=== PATIENT | female | born 1990 | race Caucasian/White ===

== ENCOUNTER 2017-09-24 17:42 | Inpatient (IN) | payer BC ==
[~2017-09-24] VITALS: Ht 165.1 cm; Wt 71.1 kg
[~2017-09-24 17:42] MED LIST: IBU600 MG PO; MILLIPRED5 MG PO; MOTRIN 600600 MG/TAB PO; PERCOCET 325 MG1 TA2 PO; PRENATAL1 TA7 PO
[2017-10-05] VITALS (20 sets, daily range): BP systolic 103–126; BP diastolic 59–86; PULSE 67–93; TEMP 97.6–98.8
[2017-10-05 07:54] LABS: BASO % 0.5 % (0.0-2.0); EOS # 0.1 (0.0-0.7); EOS % 0.8 % (0-4.0); GRAN # 4.3 (1.4-6.5); GRAN % 65.8 % (42.2-75.2); LYMPH # 1.4 (1.2-3.4); LYMPH % 20.8 % (20.0-51.0); MEAN CELL VOLUME 84 fl (80.0-100.0); MEAN CORPUSCULAR HGB CONC 32 g/dl (33.0-37.0); MEAN PLATELET VOLUME 11.7 fl (7.4-10.4); MONO # 0.7 (0.1-0.6); PLATELET COUNT 156 K/mm3 (130-400); RED BLOOD COUNT 4.29 M/mm3 (4.10-5.30); REDCELL DISTRIBUTION WIDTH-CV 13.1 % (11.5-14.5)
[2017-10-05 07:55] LABS: HEMATOCRIT 36.2 % (37.0-47.0); HEMOGLOBIN 11.6 g/dl (12.5-16.0); MEAN CORPUSCULAR HEMOGLOBIN 27 pg (27.0-31.0)
[2017-10-06 06:45] VITALS: BP 121/77; PULSE 90; TEMP 97.7
== END 2017-10-06 12:50 | disposition home or self-care (01) | DRG 775 ==
LOC: LDR 10-05 06:55 → OB 10-05 06:55 → LDR 10-05 17:41 → OB 10-06 12:50
PROVIDERS: Student in an Organized Health Care Education/Training Program
PROC: 10E0XZZ Delivery of Products of Conception, External Approach (ICD-10-PCS; principal; 2017-10-05)
PROC: 0KQM0ZZ Repair Perineum Muscle, Open Approach (ICD-10-PCS; 2017-10-05)
PROC: 3E033VJ Introduction of Other Hormone into Peripheral Vein, Percutaneous Approach (ICD-10-PCS; 2017-10-05)
DX: O36.0130 Maternal care for anti-D [Rh] antibodies, third trimester, not applicable or unspecified (principal); O70.1 Second degree perineal laceration during delivery; Z3A.39 39 weeks gestation of pregnancy; Z37.0 Single live birth
CPT/HCPCS: J2590; J2791; J2795; J7120

== ENCOUNTER 2021-01-17 17:52 | Outpatient (CLI) | payer BC ==
[~2021-01-17] VITALS: Ht 165.1 cm; Wt 73.6 kg
--- NOTE | 2021-01-17 17:55 | NUR ---
Admits to L&D with c/o leaking of fluid when she stood up at work today around 1530 or 1600. Reports she was unsure if it was her water breaking or possibly urine. SVE 4/75/0, palpable intact bag of membranes, amnitrace negative, no fluid return when head pushed upward. Exam dry, scant amount of white discharge noted.
[2021-01-17 18:46] VITALS: BP 112/77; TEMP 98
--- NOTE | 2021-01-17 19:13 | NUR ---
DR. COON NOTIFIED OF PATIENTS NEGATIVE ROM RESULT, NO CONTRACTIONS AND REVIEW OF STRIP. PATIENT WILL BE SENT HOME PER DR. COON'S ORDERS.
== END 2021-01-17 19:05 | disposition home or self-care (01) ==
LOC: LDRO 17:52 → LDR 18:00 → LDRO 19:05
DX: O99.113 Other diseases of the blood and blood-forming organs and certain disorders involving the immune mechanism complicating pregnancy, third trimester (principal); O42.92 Full-term premature rupture of membranes, unspecified as to length of time between rupture and onset of labor; Z3A.36 36 weeks gestation of pregnancy
CPT/HCPCS: OP

== ENCOUNTER 2021-01-30 06:23 | Inpatient (IN) | payer BC ==
[~2021-01-30] VITALS: Ht 167.6 cm; Wt 73.6 kg
[2021-01-30] VITALS (20 sets, daily range): BP systolic 106–137; BP diastolic 63–88; PULSE 65–89; TEMP 97.5–98.3
[2021-01-30 07:30] LABS: BASO % 0.4 % (0.0-2.0); EOS # 0.1 (0.0-0.7); EOS % 0.8 % (0-4.0); GRAN # 5.4 (1.4-6.5); GRAN % 72.6 % (42.2-75.2); HEMATOCRIT 37.5 % (37.0-47.0); HEMOGLOBIN 12.2 g/dl (12.5-16.0); LYMPH # 1.3 (1.2-3.4); LYMPH % 17.8 % (20.0-51.0); MEAN CELL VOLUME 83 fl (80.0-100.0); MEAN CORPUSCULAR HEMOGLOBIN 27 pg (27.0-31.0); MEAN CORPUSCULAR HGB CONC 33 g/dl (33.0-37.0); MEAN PLATELET VOLUME 12.9 fl (7.4-10.4); MONO # 0.6 (0.1-0.6); MONO % 7.6 % (1.7-9.3); PLATELET COUNT 134 K/mm3 (130-400); REDCELL DISTRIBUTION WIDTH-CV 13.7 % (11.5-14.5)
[2021-01-30] MEDS ORDERED: PREDNISONE 5MG5 MG PO (08:33)
--- NOTE | 2021-01-30 08:56 | NUR ---
@ 0856 Wally durham called and notified of patient request for epidural. states he is on his way in. @ 0910 EFM off and patient assisted to ambulate to bathroom for void prior to epidural placement. While on toilet, patient reports now feeling rectal pressure. Assisted back to bed by this RN and . @ 0917 EFM back on. SVE 8.5/100%/+[address] Llamas called and notified of SVE, patient unblocked and she is needed for delivery. @ 0918 pitocin discontinued. @ 0923 Dr Llamas in room for delivery. Performs SVE @ 0925 and states cervix is anterior lip. @ 0925 Wally durham arrives to room for epidural placement. notified that patient is ready for delivery and decision made to withold epidural placement. Patient prepared for delivery. @ [address] Llamas states cervix is now complete. Patient begins pushing Delivery of head at @ 0933. Jasson maneuver performed as directed by Dr. Llamas with delivery of body @ 0934. 1% licocaine used as local for repair of laceration.
--- NOTE | 2021-01-30 11:40 | NUR ---
Patient ambulates to bathroom accompanied by this RN and for void. Able to void spontaneously. Instructed on pericare and use of witch juanpablo pads. Patient then ambulates to to post room 207 without incident. Oriented to room and plan of care.
[2021-01-31 04:25] VITALS: BP 110/78; PULSE 81; TEMP 97.8
[2021-01-31 07:50] VITALS: BP 122/69; PULSE 79; TEMP 97.8
--- NOTE | 2021-01-31 09:49 | NUR ---
Initial visit; Parents thanked [employer] for offering congratulations and God's blessings for the of their son. [employer] thanked family for choosing our hospital.
== END 2021-01-31 12:40 | disposition home or self-care (01) | DRG 806 ==
LOC: LDR 06:23 → OB 11:40
PROVIDERS: ADMIT Student in an Organized Health Care Education/Training Program
PROC: 10E0XZZ Delivery of Products of Conception, External Approach (ICD-10-PCS; principal; 2021-01-30)
PROC: 0KQM0ZZ Repair Perineum Muscle, Open Approach (ICD-10-PCS; 2021-01-30)
PROC: 10907ZC Drainage of Amniotic Fluid, Therapeutic from Products of Conception, Via Natural or Artificial Opening (ICD-10-PCS; 2021-01-30)
PROC: 3E033VJ Introduction of Other Hormone into Peripheral Vein, Percutaneous Approach (ICD-10-PCS; 2021-01-30)
DX: O66.0 Obstructed labor due to shoulder dystocia (principal); O99.12 Other diseases of the blood and blood-forming organs and certain disorders involving the immune mechanism complicating childbirth; Z37.0 Single live birth; Z3A.39 39 weeks gestation of pregnancy; O70.1 Second degree perineal laceration during delivery; D69.6 Thrombocytopenia, unspecified; O26.893 Other specified pregnancy related conditions, third trimester; Z67.11 Type A blood, Rh negative
CPT/HCPCS: J2590; J7120